=== PATIENT | female | born 1945 | race Caucasian/White ===

== ENCOUNTER 2016-08-13 16:33 | Emergency (ER) | payer MEDICARE, OTHER ==
--- NOTE | 2016-08-13 16:49 | ED ---
General Adult HPI - General Chief complaint: Recheck/Abnormal Lab/Rx Stated complaint: Hypertension Time Seen by Provider: 08/13/16 16:45 Source: patient, RN notes reviewed, old records reviewed Mode of arrival: ambulatory Limitations: no limitations - History of Present Illness Initial comments: This is a 71-year-old female ER for evaluation. Patient's today for evaluation over concern of her blood pressure. Patient has history of high blood pressures been taking blood pressure medications as directed. Patient states she took she just didn't feel which she woke this morning took her blood pressure noted to be mildly elevated, she took it again a few hours later and it still remained elevated. Patient has no complaints aside from her elevated blood pressure and is concerned about how high it is been. No recent change in medications. Patient has no headache, no chest pain, no shortness of breath. - Related Data Home Medications Medication Instructions Recorded Confirmed Allopurinol [Zyloprim] 100 mg PO QAM 11/20/14 08/13/16 Levothyroxine Sodium [Synthroid] 25 mcg PO QAM 11/20/14 08/13/16 Pravastatin Sodium 40 mg PO QAM 11/20/14 08/13/16 Sennosides-Docusate Sodium 2 tab PO QAM 11/20/14 08/13/16 [Senokot-S] Aspirin EC [Ecotrin] 650 mg PO QAM 11/21/14 08/13/16 Biotin 5 mg PO QAM 10/28/15 08/13/16 Cholecalciferol (Vitamin D3) 2,000 unit PO QAM 08/13/16 08/13/16 [Vitamin D3] Lisinopril-Hctz 20-12.5 mg 1 tab PO QAM 08/13/16 08/13/16 [Zestoretic 20-12.5] Allergies Allergy/AdvReac Type Severity Reaction Status Date / Time adhesive tape Allergy Rash/Hives Verified 08/13/16 18:21 Iodinated Contrast Media - Allergy Rash/Hives Verified 08/13/16 18:21 Oral and [Iodinated Contrast Media - IV Dye] hydrocodone AdvReac Vertigo Verified 08/13/16 18:21 Review of Systems ROS Statement: Those systems with pertinent positive or pertinent negative responses have been documented in the HPI. ROS Other: All systems not noted in ROS Statement are negative. Past Medical History Past Medical History: Diabetes Mellitus, Hyperlipidemia, Hypertension History of Any Multi-Drug Resistant Organisms: None Reported Past Surgical History: Orthopedic Surgery Additional Past Surgical History / Comment(s): breast reduction, Left ankle surgery x3 Past Anesthesia/Blood Transfusion Reactions: Postoperative Nausea & Vomiting ( PONV) Additional Past Anesthesia/Blood Transfusion Reaction / Comment(s): difficult to wake up Past Psychological History: No Psychological Hx Reported Smoking Status: Former smoker Past Alcohol Use History: None Reported Past Drug Use History: None Reported General Exam Limitations: no limitations General appearance: alert, in no apparent distress Head exam: Present: atraumatic, normocephalic, normal inspection Eye exam: Present: normal appearance, PERRL, EOMI. Absent: scleral icterus, conjunctival injection, periorbital swelling ENT exam: Present: normal exam, mucous membranes moist Neck exam: Present: normal inspection. Absent: tenderness, meningismus, lymphadenopathy Respiratory exam: Present: normal lung sounds bilaterally. Absent: respiratory distress, wheezes, rales, rhonchi, stridor Cardiovascular Exam: Present: regular rate, normal rhythm, normal heart sounds. Absent: systolic murmur, diastolic murmur, rubs, gallop, clicks GI/Abdominal exam: Present: soft, normal bowel sounds. Absent: distended, tenderness, guarding, rebound, rigid Extremities exam: Present: normal inspection, full ROM, normal capillary refill. Absent: tenderness, pedal edema, joint swelling, calf tenderness Back exam: Present: normal inspection Neurological exam: Present: alert, oriented X3, CN II-XII intact Psychiatric exam: Present: normal affect, normal mood Skin exam: Present: warm, dry, intact, normal color. Absent: rash Course Vital Signs 08/13/16 08/13/16 08/13/16 16:39 17:36 18:18 Temperature 97.4 F L Pulse Rate 66 75 68 Respiratory 18 16 18 Rate Blood Pressure 174/74 142/71 126/68 O2 Sat by Pulse 97 98 96 Oximetry 08/13/16 19:18 Temperature 98.0 F Pulse Rate 67 Respiratory 16 Rate Blood Pressure 140/64 O2 Sat by Pulse 97 Oximetry EKG Findings - EKG Comments: EKG Findings:: EKG shows junctional rhythm at 68, P TN not exhibiting, QRS 78, QTC 455 Medical Decision Making - Medical Decision Making 71 female here with elevated blood pressure, blood pressures improving control at this time lab is normal. Patient will see primary care tomorrow for adjustment of medications. Denies headache, no chest pain, no abdominal pain. Patient okay for discharge - Lab Data Result diagrams: 08/13/16 17:34 08/13/16 17:34 Lab Results 08/13/16 08/13/16 08/13/16 Range/Units 17:34 17:34 17:34 WBC 8.8 (3.8-10.6) k/uL RBC 4.71 (3.80-5.40) m/uL Hgb 13.4 (11.4-16.0) gm/dL Hct 41.5 (34.0-46.0) % MCV 88.2 (80.0-100.0) fL MCH 28.4 (25.0-35.0) pg MCHC 32.3 (31.0-37.0) g/dL RDW 13.7 (11.5-15.5) % Plt Count 240 (150-450) k/uL Neutrophils % 65 % Lymphocytes % 24 % Monocytes % 4 % Eosinophils % 4 % Basophils % 1 % Neutrophils # 5.7 (1.3-7.7) k/uL Lymphocytes # 2.1 (1.0-4.8) k/uL Monocytes # 0.4 (0-1.0) k/uL Eosinophils # 0.4 (0-0.7) k/uL Basophils # 0.1 (0-0.2) k/uL PT (9.0-12.0) sec INR (<1.1) APTT (22.0-30.0) sec Sodium 140 (137-145) mmol/L Potassium 4.4 (3.5-5.1) mmol/L Chloride 102 (98-107) mmol/L Carbon Dioxide 26 (22-30) mmol/L Anion Gap 12 mmol/L BUN 10 (7-17) mg/dL Creatinine 0.60 (0.52-1.04) mg/dL Est GFR (MDRD) Af Amer >60 (>60 ml/min/1.73 sqM) Est GFR (MDRD) Non-Af >60 (>60 ml/min/1.73 sqM) Glucose 96 (74-99) mg/dL Calcium 9.7 (8.4-10.2) mg/dL Magnesium 1.8 (1.6-2.3) mg/dL Total Bilirubin 0.4 (0.2-1.3) mg/dL AST 24 (14-36) U/L ALT 34 (9-52) U/L Alkaline Phosphatase 81 (38-126) U/L Total Creatine Kinase 138 H (30-135) U/L CK-MB (CK-2) 1.4 (0.0-2.4) ng/mL CK-MB (CK-2) Rel Index 1.0 Troponin I <0.012 (0.000-0.034) ng/mL NT-Pro-B Natriuret Pep pg/mL Total Protein 7.0 (6.3-8.2) g/dL Albumin 4.3 (3.5-5.0) g/dL Lipase 70 (23-300) U/L 08/13/16 08/13/16 Range/Units 17:34 17:34 WBC (3.8-10.6) k/uL RBC (3.80-5.40) m/uL Hgb (11.4-16.0) gm/dL Hct (34.0-46.0) % MCV (80.0-100.0) fL MCH (25.0-35.0) pg MCHC (31.0-37.0) g/dL RDW (11.5-15.5) % Plt Count (150-450) k/uL Neutrophils % % Lymphocytes % % Monocytes % % Eosinophils % % Basophils % % Neutrophils # (1.3-7.7) k/uL Lymphocytes # (1.0-4.8) k/uL Monocytes # (0-1.0) k/uL Eosinophils # (0-0.7) k/uL Basophils # (0-0.2) k/uL PT 9.7 (9.0-12.0) sec INR 0.9 (<1.1) APTT 23.8 (22.0-30.0) sec Sodium (137-145) mmol/L Potassium (3.5-5.1) mmol/L Chloride (98-107) mmol/L Carbon Dioxide (22-30) mmol/L Anion Gap mmol/L BUN (7-17) mg/dL Creatinine (0.52-1.04) mg/dL Est GFR (MDRD) Af Amer (>60 ml/min/1.73 sqM) Est GFR (MDRD) Non-Af (>60 ml/min/1.73 sqM) Glucose (74-99) mg/dL Calcium (8.4-10.2) mg/dL Magnesium (1.6-2.3) mg/dL Total Bilirubin (0.2-1.3) mg/dL AST (14-36) U/L ALT (9-52) U/L Alkaline Phosphatase (38-126) U/L Total Creatine Kinase (30-135) U/L CK-MB (CK-2) (0.0-2.4) ng/mL CK-MB (CK-2) Rel Index Troponin I (0.000-0.034) ng/mL NT-Pro-B Natriuret Pep 72 pg/mL Total Protein (6.3-8.2) g/dL Albumin (3.5-5.0) g/dL Lipase (23-300) U/L - Radiology Data Radiology results: report reviewed (Chest x-ray is negative for acute disease), image reviewed Disposition Clinical Impression: Hypertension Disposition: HOME SELF-CARE Condition: Good Instructions: Hypertension (ED) Referrals: Aaron Moctezuma MD [Primary Care Provider] - 1-2 days
[2016-08-13] MEDS ORDERED: SODIUM CHLORIDE 0.9% 1,000 ML IV STA (17:10)
[2016-08-13] MEDS ORDERED: LABETALOL 5 MG/ML VIAL MDV IVP STA (17:11)
[2016-08-13] MEDS ORDERED: ONDANSETRON 4 MG/2 ML VIAL IVP STA (17:11)
[2016-08-13 17:58] LABS: Basophils # (A) 0.1 k/uL (0-0.2); Basophils % (A) 1 %; CH 28.9; Eosinophils # (A) 0.4 k/uL (0-0.7); Eosinophils % (A) 4 %; HCT 41.5 % (34.0-46.0); HDW 2.47; HGB 13.4 gm/dL (11.4-16.0); Luc % (Auto) 2; Lymphocytes # (A) 2.1 k/uL (1.0-4.8); Lymphocytes % (A) 24 %; MCH 28.4 pg (25.0-35.0); MCHC 32.3 g/dL (31.0-37.0); MCV 88.2 fL (80.0-100.0); Mean Platelet Volume 7.4; Monocytes # (A) 0.4 k/uL (0-1.0); Monocytes % (A) 4 %; Neutrophils # (A) 5.7 k/uL (1.3-7.7); Neutrophils % (A) 65 %; RBC 4.71 m/uL (3.80-5.40); RDW 13.7 % (11.5-15.5); WBC 8.8 k/uL (3.8-10.6)
[2016-08-13 18:06] LABS: INR 0.9 (<1.1); Partial Thromboplastin Time 23.8 sec (22.0-30.0); Prothrombin Time 9.7 sec (9.0-12.0)
[2016-08-13 18:15] LABS: ALT 34 U/L (9-52); AST 24 U/L (14-36); Alkaline Phosphatase 81 U/L (38-126); Anion Gap 12 mmol/L; Blood Urea Nitrogen 10 mg/dL (7-17); Calcium 9.7 mg/dL (8.4-10.2); Carbon Dioxide 26 mmol/L (22-30); Chloride 102 mmol/L (98-107); Glucose 96 mg/dL (74-99); Magnesium 1.8 mg/dL (1.6-2.3); Non-African American GFR(MDRD) >60 (>60 ml/min/1.73 sqM); Potassium 4.4 mmol/L (3.5-5.1); Sodium 140 mmol/L (137-145); Total Bilirubin 0.4 mg/dL (0.2-1.3)
[2016-08-13 18:17] LABS: Creatine Kinase 138 U/L (30-135)
--- NOTE | 2016-08-13 18:18 | XR ---
EXAMINATION TYPE: XR chest 2V DATE OF EXAM: 08/13/2016 COMPARISON: 10/28/2015 INDICATION: Chest pain TECHNIQUE: Frontal and lateral views of the chest are obtained. FINDINGS: The heart size is normal. The pulmonary vasculature is normal. The lungs are clear. IMPRESSION: 1. No acute pulmonary process.
[2016-08-13 18:31] LABS: Creatine Kinase MB 1.4 ng/mL (0.0-2.4); Troponin I <0.012 ng/mL (0.000-0.034)
[2016-08-13 19:19] VITALS: BP 140/64; PULSE 67; RESP 16; TEMP 98
== END 2016-08-13 19:19 | disposition home or self-care (01) ==
LOC: EC 16:33
DX: I10 Essential (primary) hypertension (principal); E78.5 Hyperlipidemia, unspecified; Z87.891 Personal history of nicotine dependence; Z79.82 Long term (current) use of aspirin; Z79.899 Other long term (current) drug therapy; Z88.5 Allergy status to narcotic agent; Z91.041 Radiographic dye allergy status; Z91.09 Other allergy status, other than to drugs and biological substances; Z53.20 Procedure and treatment not carried out because of patient's decision for unspecified reasons
CPT/HCPCS: 36415; 71020; 80053; 82550; 82553; 83690; 83735; 83880; 84484; 85025; 85610; 85730; 93005; 96361; 96374; 99284

== ENCOUNTER 2021-10-10 09:57 | Emergency (ER) | payer MEDICARE, OTHER ==
[2021-10-10 10:17] VITALS: BP 120/79; PULSE 68; RESP 16; TEMP 97.8
[2021-10-10] MEDS ORDERED: ONDANSETRON 4 MG/2 ML VIAL IVP STA (10:27)
[2021-10-10] MEDS ORDERED: SODIUM CHLORIDE 0.9% 1,000 ML IV STA (10:27)
--- NOTE | 2021-10-10 10:33 | ED ---
Nausea/Vomiting/Diarrhea HPI - General Chief complaint: Nausea/Vomiting/Diarrhea Stated complaint: COVID+ Time Seen by Provider: 10/10/21 10:09 Source: patient, RN notes reviewed Mode of arrival: wheelchair Limitations: no limitations - History of Present Illness Initial comments: This is a 76-year-old female who presents to the emergency department for nausea and vomiting. Patient states that she tested positive for COVID 2 days ago, and yesterday she became very nauseous and has been unable to keep anything down. Denies any associated abdominal pain. She does have a cough and body aches. She was started on the Paxlovid, however she is not able to keep it down due to her symptoms. Denies any fevers, chills, sore throat, cough, dyspnea, chest pain, palpitations, abdominal pain, diarrhea, back pain, or headaches. MD complaint: nausea, vomiting Onset/Timin -: days(s) Associated Abdominal Pain: No Associated Symptoms: myalgias - Related Data Home Medications Medication Instructions Recorded Confirmed Levothyroxine Sodium [Synthroid] 25 mcg PO QAM 11/20/14 08/13/16 Pravastatin Sodium 40 mg PO QAM 11/20/14 08/13/16 Sennosides-Docusate Sodium 2 tab PO QAM 11/20/14 08/13/16 [Senokot-S] allopurinoL [Zyloprim] 100 mg PO QAM 11/20/14 08/13/16 Aspirin EC [Ecotrin] 650 mg PO QAM 11/21/14 08/13/16 Biotin 5 mg PO QAM 10/28/15 08/13/16 Cholecalciferol (Vitamin D3) 2,000 unit PO QAM 08/13/16 08/13/16 [Vitamin D3] Lisinopril-Hctz 20-12.5 mg 1 tab PO QAM 08/13/16 08/13/16 [Zestoretic 20-12.5] Previous Rx's Medication Instructions Recorded Ondansetron Odt [Zofran Odt] 4 mg PO Q8HR PRN #20 tab 10/10/21 Allergies Allergy/AdvReac Type Severity Reaction Status Date / Time adhesive tape Allergy Rash/Hives Verified 10/10/21 10:17 Iodinated Contrast Media Allergy Rash/Hives Verified 10/10/21 10:17 [Iodinated Contrast Media - IV Dye] hydrocodone AdvReac Vertigo Verified 10/10/21 10:17 Review of Systems ROS Statement: Those systems with pertinent positive or pertinent negative responses have been documented in the HPI. ROS Other: All systems not noted in ROS Statement are negative. Past Medical History Past Medical History: Diabetes Mellitus, Hyperlipidemia, Hypertension History of Any Multi-Drug Resistant Organisms: None Reported Past Surgical History: Orthopedic Surgery Additional Past Surgical History / Comment(s): breast reduction, Left ankle davis rgery x3 Past Anesthesia/Blood Transfusion Reactions: Postoperative Nausea & Vomiting (PONV) Additional Past Anesthesia/Blood Transfusion Reaction / Comment(s): difficult to wake up Past Psychological History: No Psychological Hx Reported Past Alcohol Use History: None Reported Past Drug Use History: None Reported General Exam Limitations: no limitations General appearance: alert, in distress Head exam: Present: atraumatic, normocephalic, normal inspection Respiratory exam: Present: normal lung sounds bilaterally. Absent: respiratory distress, wheezes, rales, rhonchi, stridor Cardiovascular Exam: Present: regular rate, normal rhythm, normal heart sounds. Absent: systolic murmur, diastolic murmur, rubs, gallop, clicks GI/Abdominal exam: Present: soft, normal bowel sounds. Absent: distended, tenderness, guarding, rebound, rigid Neurological exam: Present: alert, oriented X3, CN II-XII intact Psychiatric exam: Present: normal affect, normal mood Skin exam: Present: warm, dry, intact, normal color. Absent: rash Course Vital Signs 10/10/21 10:12 Temperature 97.8 F Pulse Rate 68 Respiratory 16 Rate Blood Pressure 120/79 O2 Sat by Pulse 100 Oximetry Medical Decision Making - Medical Decision Making This is a 76-year-old female who presents to the emergency department for nausea and vomiting. Baseline lab work obtained and was nonactionable. Patient was given IV fluids and Zofran, and reported significant improvement. She was able to tolerate oral intake with water and Jell-O prior to discharge. Prescription for Zofran provided. Advised she continue to take the Paxlovid if she is able to. Also instructed her to remain well-hydrated and slowly advance her diet as tolerated. Return precautions reviewed in depth, the patient is instructed to return to the emergency department with any new, worsening, or concerning symptoms. Patient verbalized understanding. This case was discussed in detail with the attending ED physician. Presentation, findings, and treatment plan discussed in detail as well. - Lab Data Result diagrams: 10/10/21 10:45 10/10/21 10:45 Lab Results 10/10/21 10/10/21 Range/Units 10:45 10:45 WBC 5.1 (3.8-10.6) k/uL RBC 4.97 (3.80-5.40) m/uL Hgb 14.0 (11.4-16.0) gm/dL Hct 43.9 (34.0-46.0) % MCV 88.4 (80.0-100.0) fL MCH 28.2 (25.0-35.0) pg MCHC 32.0 (31.0-37.0) g/dL RDW 13.0 (11.5-15.5) % Plt Count 220 (150-450) k/uL MPV 9.0 Neutrophils % 63 % Lymphocytes % 27 % Monocytes % 7 % Eosinophils % 0 % Basophils % 1 % Neutrophils # 3.2 (1.3-7.7) k/uL Lymphocytes # 1.4 (1.0-4.8) k/uL Monocytes # 0.4 (0-1.0) k/uL Eosinophils # 0.0 (0-0.7) k/uL Basophils # 0.0 (0-0.2) k/uL Sodium 135 L (137-145) mmol/L Potassium 4.5 (3.5-5.1) mmol/L Chloride 100 (98-107) mmol/L Carbon Dioxide 21 L (22-30) mmol/L Anion Gap 14 mmol/L BUN 13 (7-17) mg/dL Creatinine 0.68 (0.52-1.04) mg/dL Est GFR (CKD-EPI)AfAm >90 (>60 ml/min/1.73 sqM) Est GFR (CKD-EPI)NonAf 86 (>60 ml/min/1.73 sqM) Glucose 150 H (74-99) mg/dL Calcium 8.9 (8.4-10.2) mg/dL Total Bilirubin 0.3 (0.2-1.3) mg/dL AST 47 H (14-36) U/L ALT 30 (4-34) U/L Alkaline Phosphatase 94 (38-126) U/L Total Protein 7.0 (6.3-8.2) g/dL Albumin 4.4 (3.5-5.0) g/dL Disposition Clinical Impression: COVID-19, Nausea and vomiting Disposition: HOME SELF-CARE Instructions (If sedation given, give patient instructions): Coronavirus Disease 2019 (COVID-19), Acute Nausea and Vomiting (ED), How to Recover from COVID-19 at Home (ED) Additional Instructions: Return to the emergency department with any new, worsening, or concerning symptoms. Take the Zofran up to every 8 hours as needed for nausea and vomiting. Make sure that you remain well-hydrated. Continue taking the Paxlovid that was prescribed. Slowly advance your diet as tolerated. Prescriptions: Ondansetron Odt [Zofran Odt] 4 mg PO Q8HR PRN #20 tab PRN Reason: Nausea And Vomiting Is patient prescribed a controlled substance at d/c from ED?: No Referrals: Nonstaff,Physician [Primary Care Provider] - 1-2 days
[2021-10-10 10:54] LABS: Basophils % (A) 1 %; Eosinophils % (A) 0 %; HCT 43.9 % (34.0-46.0); Lymphocytes # (A) 1.4 k/uL (1.0-4.8); Lymphocytes % (A) 27 %; MCH 28.2 pg (25.0-35.0); MCV 88.4 fL (80.0-100.0); Monocytes # (A) 0.4 k/uL (0-1.0); Monocytes % (A) 7 %; Neutrophils # (A) 3.2 k/uL (1.3-7.7); Neutrophils % (A) 63 %; Platelet Count 220 k/uL (150-450); RBC 4.97 m/uL (3.80-5.40); WBC 5.1 k/uL (3.8-10.6)
[2021-10-10 11:04] LABS: ALT 30 U/L (4-34); AST 47 U/L (14-36); African American GFR (CKD) >90 (>60 ml/min/1.73 sqM); Albumin 4.4 g/dL (3.5-5.0); Alkaline Phosphatase 94 U/L (38-126); Anion Gap 14 mmol/L; Blood Urea Nitrogen 13 mg/dL (7-17); Calcium 8.9 mg/dL (8.4-10.2); Carbon Dioxide 21 mmol/L (22-30); Chloride 100 mmol/L (98-107); Glucose 150 mg/dL (74-99); Non-African American GFR(CKD) 86 (>60 ml/min/1.73 sqM); Potassium 4.5 mmol/L (3.5-5.1); Sodium 135 mmol/L (137-145); Total Bilirubin 0.3 mg/dL (0.2-1.3)
[2021-10-10] MEDS ORDERED: ONDANSETRON 4 MG ODT STARTER PACK 2 TAB BTL PO STA (11:50)
== END 2021-10-10 12:56 | disposition home or self-care (01) ==
LOC: EC 09:57
DX: U07.1 COVID-19 (principal); E11.9 Type 2 diabetes mellitus without complications; E78.5 Hyperlipidemia, unspecified; I10 Essential (primary) hypertension; Z91.09 Other allergy status, other than to drugs and biological substances; Z91.041 Radiographic dye allergy status; Z88.5 Allergy status to narcotic agent; Z79.899 Other long term (current) drug therapy; Z79.82 Long term (current) use of aspirin
CPT/HCPCS: 36415; 80053; 85025; 99284; 96374; 96361; J2405; S0119

== ENCOUNTER → 2022-07-27 | Outpatient (CLI) | payer MEDICARE | END | disposition home or self-care (01) | LOC: LABWHC1 12:52 | PROVIDERS: ATTEND Physical Medicine & Rehabilitation | DX: M35.3 Polymyalgia rheumatica (principal); R53.81 Other malaise; R53.83 Other fatigue | CPT/HCPCS: 36415; 82550 ==

== ENCOUNTER → 2022-08-02 | Outpatient (CLI) | payer MEDICARE | END | disposition home or self-care (01) | LOC: LABWHC1 12:08 | PROVIDERS: ATTEND Physical Medicine & Rehabilitation | DX: M35.3 Polymyalgia rheumatica (principal); R53.81 Other malaise; R53.83 Other fatigue | CPT/HCPCS: 36415; 85652; 86140 ==

== ENCOUNTER 2024-01-06 05:39 | Day surgery (SDC) | payer MEDICARE, OTHER ==
[2024-01-06] MEDS: IV FLUID CONTINUATION 1,000 ML IV ONE (06:33)
[2024-01-06] MEDS: FAMOTIDINE 20 MG/2 ML VIAL IV STA (06:52)
[2024-01-06] MEDS: DEXAMETHASONE SOD PHOSPHATE 4 MG/ML 1 ML VIAL IV ONE (06:53)
[2024-01-06] MEDS: ONDANSETRON 4 MG/2 ML VIAL IVP ONE (06:53)
[2024-01-06] MEDS: LACTATED RINGERS 1,000 ML IV SCH (06:53)
[2024-01-06] MEDS: MIDAZOLAM 2 MG/2 ML VIAL IV PRN (07:00)
[2024-01-06 07:01] LABS: Glucose,Whole Blood 119 mg/dL (70-110)
[2024-01-06] MEDS ORDERED: PROPOFOL 10 MG/ML 20 ML VIAL IV ONE (07:25)
[2024-01-06] MEDS ORDERED: LIDOCAINE 1% INJ 10MG/ML (20 ML MDV) ONE (07:25)
[2024-01-06] MEDS ORDERED: ROPIVACAINE 5 MG/ML 30 ML VIAL ONE (07:25)
[2024-01-06] MEDS ORDERED: fentaNYL (PF) 50 MCG/ML 2 ML AMP ONE (07:25)
[2024-01-06] MEDS ORDERED: DEXAMETHASONE SOD PHOSPHATE 4 MG/ML 1 ML VIAL ONE (07:25)
[2024-01-06] MEDS ORDERED: PHENYLEPHRINE-0.9% NACL SYG 1,000 MCG/10 ML SYRINGE ONE (07:25)
--- NOTE | 2024-01-06 07:25 | P.ANPRN ---
Procedure Note - Anesthesia - Nerve Block Performed Left Popliteal Single Time Out Performed: Yes Date of Procedure: 01/06/24 Procedure Start Time: 07:00 Procedure Stop Time: 07:05 Location of Patient: PreOp Indication: Acute Post-Operative Pain, Analgesia, Requested by Surgeon Sedation Type: Sedate with meaningful contact maintained Preparation: Sterile Prep Position: Right Lateral Catheter: None Needle Types: Pajunk Needle Gauge: 21 Ultrasound used to visualize needle placement: Yes Ultrasound used to observe medication spread: Yes Injectate: 0.5% Ropivacaine (see comment for volume) (Ropiv 20ml+[id number]) Blood Aspirated: No Pain Paresthesia on Injection Noted: No Resistance on Injection: Normal Image Stored and Saved: Yes Events: Uneventful and Well Tolerated
--- NOTE | 2024-01-06 07:26 | P.ANPRN ---
Procedure Note - Anesthesia - Nerve Block Performed Left Adductor Canal Single Time Out Performed: Yes Date of Procedure: 01/06/24 Procedure Start Time: 07:05 Procedure Stop Time: 07:10 Location of Patient: PreOp Indication: Acute Post-Operative Pain, Analgesia, Requested by Surgeon Sedation Type: Sedate with meaningful contact maintained Preparation: Sterile Prep Position: Supine Catheter: None Needle Types: Pajunk Needle Gauge: 21 Ultrasound used to visualize needle placement: Yes Ultrasound used to observe medication spread: Yes Injectate: 0.5% Ropivacaine (see comment for volume) (Ropiv 15ml+[id number]) Blood Aspirated: No Pain Paresthesia on Injection Noted: No Resistance on Injection: Normal Image Stored and Saved: Yes Events: Uneventful and Well Tolerated
[2024-01-06] MEDS: ceFAZolin 1,000 MG in SODIUM CHLORIDE 0.9% 1,000 ML IRRIGATION ONE (07:29)
[2024-01-06] MEDS: BUPIVACAINE (PF) 0.25% 30 ML VIAL SQ ONE (08:00)
[2024-01-06] MEDS: LACTATED RINGERS 1,000 ML IV ONE (09:11)
[2024-01-06 09:35] VITALS: TEMP 97
[2024-01-06 09:42] LABS: Glucose,Whole Blood 131 mg/dL (70-110)
--- NOTE | 2024-01-06 09:56 | P.OP ---
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 The patient was brought into the operating room and placed on the table supine position. Timeout was taken to confirm correct patient identifiers, correct laterally of surgery, and correct procedure. Once all staff in the room were in agreement with the timeout, the patient was induced and placed under general anesthesia. A well- padded tourniquet was placed on the left calf and a wedge underneath the left hip to internally rotate the left leg. The left leg was prepped and draped in the usual manner. The leg was exsanguinated and the tourniquet inflated to 250 mmHg. Utilizing fluoroscopic visualization, a metallic marker was used to outline the location of the navicular cuneiform joints. A marker was used on the skin to identify the location of the joints. And then additional joe were made between the medial and intermediate cuneiforms and over the third cuneiform. These were the entry points for the joint prepped instrumentation. The incisions are made and bluntly dissected down to bone protecting the surrounding soft tissue. The joint proper was inserted and used to prepare all 3 components of the navicular cuneiform joint. The areas were thoroughly irrigated to remove all the bony material from the resection. Then fluoroscopy was used to make sure there was full resection. The area is well visualized and there was complete resection of the bony components on both sides of the joint. 3 mL of augment was then placed between the arthrodesis segments. Guidewires for 4.0 mm fully threaded headless screws were positioned over the first second and third cuneiforms. There advanced across the navicular cuneiform joints. Fluoroscopy confirmed the proper alignment of the wires. With the midfoot held in compression, the medial screw was placed first. There was good bone purchase and compression noted due to some of the extravasation of the augment from the arthrodesis site. The second screw was placed into the intermediate cuneiform and the third into the lateral cuneiform. All screws had excellent bony purchase and provided compression across the full length of the arthrodesis site. Ross be confirmed the proper positioning of the hardware on AP and lateral views. Then attention was directed over the calcaneal cuboid joint, where a small transverse incision was made over the joint. The soft tissues were bluntly dissected down to bonean elevator was used to raise the soft tissue off the joint. The same bur utilizing the midfoot was used to resect the articular surfaces of the calcaneocuboid joint. The wound was thoroughly irrigated to remove all the bony material. 1 mL of augment was then placed between the arthrodesis segments. Another guidewire for 4.0 mm screw was placed on the dorsal aspect of the cuboid and advanced across the arthrodesis site into the anterior process of the calcaneus. The screw was advanced until a purchase of bone on the cuboid. Then through the incision for the joint prepped, drill holes for a 15 mm x 15 mm compression staple were made. The staple was inserted and then impacted down to a flush depth. The research recruiter was removed to allow the legs of the staple to begin compression. Final fluoroscopic imaging showed excellent compression across all the arthrodesis sites. All wounds were thoroughly irrigated with antibiotic saline. Subcutaneous closure on the three larger incisions was done with 4-0 Monocryl. All incisions were closed with 3-0 Nylon. An Arthrex Jumpstart was placed over the incisions. A bulky, dry dressing was applied to the foot. The tourniquet was released and capillary refill returned to all digits on the foot. A well -padded, well molded plaster posterior mold/sugartong splint was applied to the leg. The ankle and foot were held in neutral position until the splint was dry. Anesthesia was reversed and t he patient was taken to recovery with vital signs stable.
[2024-01-06] MEDS: fentaNYL (PF) 50 MCG/ML 2 ML AMP IV PRN (10:04)
[2024-01-06 11:07] VITALS: RESP 16
[2024-01-06 13:00] VITALS: BP 117/71; PULSE 75
== END 2024-01-06 13:40 | disposition home or self-care (01) ==
LOC: OR 05:39
PROVIDERS: ATTEND Podiatrist
DX: M19.172 Post-traumatic osteoarthritis, left ankle and foot (principal); I10 Essential (primary) hypertension; E78.5 Hyperlipidemia, unspecified; I25.2 Old myocardial infarction; J45.909 Unspecified asthma, uncomplicated; E11.9 Type 2 diabetes mellitus without complications; M54.2 Cervicalgia; E03.9 Hypothyroidism, unspecified; L23.1 Allergic contact dermatitis due to adhesives; Z88.5 Allergy status to narcotic agent; Z91.040 Latex allergy status; Z79.02 Long term (current) use of antithrombotics/antiplatelets; Z79.890 Hormone replacement therapy; Z79.899 Other long term (current) drug therapy
CPT/HCPCS: 28730; J2250; J1100; J0690 ×2; J2405; J3490; J0665; 64445; 64447